=== PATIENT | male | born 2005 | race Caucasian/White ===

== ENCOUNTER 2024-08-19 21:37 | Emergency (ER) | payer MEDICAID ==
[~2024-08-19] VITALS: Ht 172.7 cm; Wt 73.0 kg
[2024-08-19 21:56] VITALS: BP 117/76; PULSE 60; RESP 16; TEMP 98.5; O2SAT 97
[2024-08-19 22:26] LABS: BASOPHILS % 0.6 % (0.0-2.0); EOSINOPHILS % 0.6 % (0.0-5.0); HEMATOCRIT. 41.2 % (42.0-52.0); LYMPHOCYTES % 14.8 % (20.0-50.0); MEAN CORPUSCULAR HEMOGLOBIN 29.7 pg (28.0-32.0); MEAN CORPUSCULAR VOLUME 87.5 fL (80.0-94.0); MONOCYTES % 4.5 % (2.0-8.0); NEUTROPHILS % 79.5 % (40.0-76.0); PLATELET 278 x1000/uL (130-400); RED CELL DISTRIBUTION WIDTH 14.2 % (11.6-14.6); WHITE BLOOD COUNT 9.7 x1000/uL (4.5-11.0)
[2024-08-19 22:33] LABS: CARBON DIOXIDE 23 mEq/L (21-32); CHLORIDE 107 mEq/L (98-107); POTASSIUM 3.1 mEq/L (3.5-5.1); SODIUM 142 mEq/L (136-145)
[2024-08-19 22:34] LABS: CALCIUM 9.3 mg/dL (8.7-10.4)
[2024-08-19 22:38] LABS: CREATININE 0.8 mg/dL (0.6-1.3)
[2024-08-19 22:39] LABS: ETHANOL BLOOD 287 mg/dL (<10); GLUCOSE 133 mg/dL (70-105); UREA NITROGEN BLOOD 19 mg/dL (9-23)
[2024-08-20] MEDS ORDERED: ONDA4TAB50 MT (03:05)
== END 2024-08-20 03:10 | disposition home or self-care (01) ==
LOC: ER 21:37
DX: S00.83XA Contusion of other part of head, initial encounter (principal); F10.129 Alcohol abuse with intoxication, unspecified; W18.30XA Fall on same level, unspecified, initial encounter; Y93.89 Activity, other specified; Y92.89 Other specified places as the place of occurrence of the external cause; Y99.8 Other external cause status; Y90.8 Blood alcohol level of 240 mg/100 ml or more
CPT/HCPCS: 36415; 70486; 80048; 80320; 82962; 85025; 99284; G0480